=== PATIENT | male | born 1960 | race Caucasian/White ===

== ENCOUNTER 2019-03-25 18:31 | Emergency (ER) | payer BC ==
[2019-03-25 19:54] VITALS: BP 134/85
--- NOTE | 2019-03-25 20:25 | ED ---
Abdominal Pain/Male - HPI Summary HPI Summary: 59 yr old male with Right upper quadrant abdominal pain. Onset of pain three days ago. Right upper quadrant area. Onset was after eating a large steak dinner. He has aversion to eating due to worrying about pain getting worse. He has no NVD. No SOB, NO CP. He has no fever or chills. He has no other complaints. - History of Current Complaint Chief Complaint: UCAbdominalPain Stated Complaint: RT SIDE UPPER ABD PAIN Time Seen by Provider: 03/25/19 20:14 Pain Intensity: 0 - Allergies/Home Medications Allergies/Adverse Reactions: Allergies Allergy/AdvReac Type Severity Reaction Status Date / Time No Known Allergies Allergy Verified 03/25/19 19:39 Home Medications: Home Medications Lisinopril/Hydrochlorothiazide [Lisinopril-Hctz 10-12.5 mg Tab] 1 tab DAILY 09/07 [History Confirmed 03/25/19] Metoprolol Tartrate TAB* [Lopressor TAB*] 1 tab DAILY 03/25/19 [History Confirmed 03/25/19] PMH/Surg Hx/FS Hx/Imm Hx Cardiovascular History: Reports: Hx Hypertension - Surgical History Surgery Procedure, Year, and Place: Appendix. Adenoids. Right knee. LEFT big toe bunion Infectious Disease History: No Infectious Disease History: Denies: Traveled Outside the [place] in Last 30 Days - Family History Known Family History: Positive: None - Social History Occupation: Employed Full-time Alcohol Use: Weekly Alcohol Amount: every other day Substance Use Type: Reports: None Smoking Status (MU): Never Smoked Tobacco Review of Systems Constitutional: Negative Positive: Abdominal Pain. Negative: Vomiting, Diarrhea, Nausea All Other Systems Reviewed And Are Negative: Yes Physical Exam Triage Information Reviewed: Yes Vital Signs On Initial Exam: Initial Vitals Temp Pulse Resp BP Pulse Ox 97.3 F 63 16 134/85 96 03/25/19 19:41 03/25/19 19:41 03/25/19 19:41 03/25/19 19:41 03/25/19 19:41 Vital Signs Reviewed: Yes Appearance: Positive: Well-Appearing, No Pain Distress Skin: Positive: Warm, Skin Color Reflects Adequate Perfusion Head/Face: Positive: Normal Head/Face Inspection Eyes: Positive: EOMI ENT: Positive: Normal ENT inspection Neck: Positive: Nontender Respiratory/Lung Sounds: Positive: Clear to Auscultation, Breath Sounds Present Cardiovascular: Positive: RRR. Negative: Murmur Abdomen Description: Positive: Other: - RUQ with tenderness to palpation.. Negative: CVA Tenderness (R), CVA Tenderness (L), Distended Musculoskeletal: Positive: Strength/ROM Intact Neurological: Positive: Sensory/Motor Intact, Alert, Oriented to Person Place, Time, CN Intact II-III, Normal Gait, Speech Normal Psychiatric: Positive: Normal Diagnostics - Vital Signs Vital Signs Temp Pulse Resp BP Pulse Ox 03/25/19 19:41 97.3 F 63 16 134/85 96 - Laboratory Lab Statement: Any lab studies that have been ordered have been reviewed, and results considered in the medical decision making process. Abdominal Pain Male Course/Dx - Course Course Of Treatment: 59 yr old with right upper abdominal pain. He signed out AMA with refusal to go to the hospital now for further work up. - Diagnoses Provider Diagnoses: Right upper quadrant abdominal pain Discharge ED - Sign-Out/Discharge Documenting (check all that apply): Patient Departure All imaging exams completed and their final reports reviewed: No Studies - Discharge Plan Condition: Good Disposition: AGAINST MEDICAL ADVICE Patient Education Materials: Acute Abdominal Pain (ED) Referrals: Titus Villegas MD [Primary Care Provider] - 1 Day Additional Instructions: It is recommended that you go to the ER now for your abdominal pain. Do not delay. You have stated you are not going. This is not advisable to delay going for further care. - Billing Disposition and Condition Condition: GOOD Disposition: Against Medical Advice
== END 2019-03-25 20:25 | disposition left against medical advice (07) ==
LOC: UCCORT 18:31
DX: R10.11 Right upper quadrant pain (principal); I10 Essential (primary) hypertension; Z79.899 Other long term (current) drug therapy
CPT/HCPCS: 99202; G0463